=== PATIENT | female | born 1990 | race African-American/Black ===

== ENCOUNTER 2016-11-23 22:38 | Emergency (ER) | payer MEDICAID ==
[~2016-11-23] VITALS: Ht 167.6 cm; Wt 75.0 kg
[2016-11-24 01:20] VITALS: BP 127/78
== END 2016-11-24 01:28 | disposition home or self-care (01) ==
LOC: ER 22:39
DX: R10.84 Generalized abdominal pain (principal); F17.210 Nicotine dependence, cigarettes, uncomplicated; F12.10 Cannabis abuse, uncomplicated
CPT/HCPCS: 99281

== ENCOUNTER 2016-12-05 10:12 | Emergency (ER) | payer MEDICAID ==
[~2016-12-05] VITALS: Ht 167.6 cm; Wt 73.0 kg
[2016-12-05 11:16] VITALS: BP 128/68
[2016-12-05] MEDS ORDERED: BACITRACIN ZINC OINT UDPKT TOP ONE (11:30)
[2016-12-05 11:48] LABS: CLARITY URINE CLEAR (CLEAR); COLOR URINE YELLOW (YELLOW); GLUCOSE URINE NEGATIVE (NEGATIVE); KETONES URINE NEGATIVE (NEGATIVE); LEUKOCYTE ESTERASE URINE NEGATIVE (NEGATIVE); NITRITE URINE NEGATIVE (NEGATIVE); OCCULT BLOOD URINE 3+ (NEGATIVE); PH URINE 6.5 (4.5-8.0); PROTEIN URINE NEGATIVE (NEGATIVE); SPECIFIC GRAVITY URINE 1.003 (1.005-1.030); UROBILINOGEN URINE 0.2 E.U./dL (0.2-1.0)
== END 2016-12-05 12:34 | disposition home or self-care (01) ==
LOC: ER 11:35
DX: S21.012A Laceration without foreign body of left breast, initial encounter (principal); W26.8XXA Contact with other sharp object(s), not elsewhere classified, initial encounter; Y93.E1 Activity, personal bathing and showering; Y92.091 Bathroom in other non-institutional residence as the place of occurrence of the external cause; Z18.89 Other specified retained foreign body fragments; R39.15 Urgency of urination; R35.0 Frequency of micturition; F12.90 Cannabis use, unspecified, uncomplicated
CPT/HCPCS: 81001; 81025; 99283

== ENCOUNTER 2017-04-16 12:34 | Emergency (ER) | payer MEDICAID ==
[~2017-04-16] VITALS: Ht 167.6 cm; Wt 60.2 kg
[2017-04-16] MEDS ORDERED: TETANUS, DIPHTHERIA, PERTUSSIS VAC/PF 0.5ML (>7YR OLD) IM ONE (13:45)
[2017-04-16] MEDS ORDERED: BACITRACIN ZINC OINT UDPKT TOP ONE (13:45)
[2017-04-16] MEDS ORDERED: LIDOCAINE HCL 1% 20ML VIAL (Pyxis) INJ MC ONE (13:45)
[2017-04-16] MEDS ORDERED: ACETAMINOPHEN 325MG TABLET PO ONE (13:45)
[2017-04-16 15:20] VITALS: BP 126/75
== END 2017-04-16 15:21 | disposition home or self-care (01) ==
LOC: ER 13:26
DX: S01.111A Laceration without foreign body of right eyelid and periocular area, initial encounter (principal); S61.511A Laceration without foreign body of right wrist, initial encounter; S60.222A Contusion of left hand, initial encounter; S60.00XA Contusion of unspecified finger without damage to nail, initial encounter; S60.212A Contusion of left wrist, initial encounter; F12.10 Cannabis abuse, uncomplicated; W19.XXXA Unspecified fall, initial encounter; Y93.89 Activity, other specified; Y92.89 Other specified places as the place of occurrence of the external cause; Y99.8 Other external cause status
CPT/HCPCS: 12002; 12011; 73110; 73140; 90471; 90715; 99284; A4217; J3490; Z7610

== ENCOUNTER 2017-04-19 12:39 | Emergency (ER) | payer MEDICAID ==
[~2017-04-19] VITALS: Ht 167.6 cm; Wt 62.0 kg
[2017-04-19] MEDS ORDERED: IBUPROFEN 600MG TABLET PO ONE (13:00)
[2017-04-19] MEDS ORDERED: BACITRACIN ZINC OINT UDPKT TOP ONE (13:15)
[2017-04-19 13:41] VITALS: BP 115/65
== END 2017-04-19 13:42 | disposition home or self-care (01) ==
LOC: ER 13:19
DX: Z48.00 Encounter for change or removal of nonsurgical wound dressing (principal)
CPT/HCPCS: 99283; A4565

== ENCOUNTER 2017-05-07 22:10 | Emergency (ER) | payer MEDICAID | END 2017-05-07 23:15 | disposition left against medical advice (07) | LOC: ER 22:10 | DX: Z53.21 Procedure and treatment not carried out due to patient leaving prior to being seen by health care provider (principal) ==

== ENCOUNTER 2017-05-08 06:42 | Emergency (ER) | payer MEDICAID ==
[~2017-05-08] VITALS: Ht 167.6 cm; Wt 61.5 kg
[2017-05-08 06:47] VITALS: BP 104/71
[2017-05-08] MEDS: BACITRACIN ZINC OINT UDPKT TOP ONE (08:23)
== END 2017-05-08 08:30 | disposition home or self-care (01) ==
LOC: ER 06:42
DX: Z48.02 Encounter for removal of sutures (principal)
CPT/HCPCS: 99283

== ENCOUNTER 2017-05-30 08:20 | Emergency (ER) | payer SELFPAY ==
[~2017-05-30] VITALS: Ht 167.6 cm; Wt 64.0 kg
[2017-05-30 09:48] VITALS: BP 109/73
== END 2017-05-30 09:47 | disposition left against medical advice (07) ==
LOC: ER 08:43
DX: Z04.3 Encounter for examination and observation following other accident (principal); Z53.21 Procedure and treatment not carried out due to patient leaving prior to being seen by health care provider

== ENCOUNTER 2017-06-01 07:42 | Emergency (ER) | payer SELFPAY | END 2017-06-01 08:21 | disposition left against medical advice (07) | LOC: ER 07:52 | DX: S61.419A Laceration without foreign body of unspecified hand, initial encounter (principal); Z53.21 Procedure and treatment not carried out due to patient leaving prior to being seen by health care provider; X58.XXXA Exposure to other specified factors, initial encounter; Y93.89 Activity, other specified; Y92.89 Other specified places as the place of occurrence of the external cause; Y99.8 Other external cause status ==

== ENCOUNTER 2017-07-24 18:53 | Emergency (ER) | payer MEDICAID | END 2017-07-24 21:01 | disposition left against medical advice (07) | LOC: ER 18:53 | DX: Z53.21 Procedure and treatment not carried out due to patient leaving prior to being seen by health care provider (principal) ==